=== PATIENT | female | born 1970 | race Caucasian/White ===

== ENCOUNTER 2017-01-12 09:41 | Emergency (ER) | payer OTHER ==
[2017-01-12 09:39] LABS: ASCORBIC ACID (UR NOT ORDER) NEG (NEG); BILIRUBIN, URINE NEGATIVE (NEG); ER URINALYSIS TAT 0 Hrs 08 Mins; KETONE, URINE NEGATIVE (NEG); LEUKOCYTE ESTERASE(NOT OR NEG (NEG); NITRITE (URINE) NEG (NEG); WBC (NOT ORDERED) (RFLEX) 1 (0-5)
[~2017-01-12 09:41] MED LIST: ADVAIR230P INH; ADVAIR250 INH; B121000P IM; BALZIVA PO; CIP5 PO; COSENTYX SC; FLORASTOR250 MG PO; FLUCON150 PO; FOLIC PO; HYALURONIDASE IV; IMMUNE GLOBULIN IV; IRON325 MG PO; LORT7 PO; MTX2.5 PO; NORCO1 TAB PO; OMNICEF300 PO; PLAQ200B PO; PRILOSEC40 MG PO; PROAIR HFA INH; PROVHFA INH; SINGULAIR1 PO; SULFAZINE500 MG PO; SYN1 PO; SYN88 PO; VFEND PO; VITAMIN D31000 UNIT PO; XYZAL5 MG PO; ZANAFLEX 4 MG TA4 MG PO; ZITH250 PO; [UNRECOGNIZED DRUG - CODE] OR
[2017-01-12 09:47] LABS: BASOPHILS 0.5 %; BASOPHILS ABSOLUTE 0.05 10/3/uL (0.0-0.16); EOSINOPHILS 0.5 %; EOSINOPHILS ABSOLUTE 0.05 10/3/uL (0.0-0.53); HEMATOCRIT 34.6 % (36.0-48.0); HEMOGLOBIN 11.8 g/dL (12.0-16.0); IMMATURE GRANULOCYTES 0.5 %; IMMATURE GRANULOCYTES ABSOLUTE 0.05 10/3/uL (0.0-0.11); LYMPHOCYTES 18.5 %; LYMPHOCYTES ABSOLUTE 1.83 10/3/uL (0.67-4.30); MANUAL DIFF NO %; MEAN CORPUS HGB CONC 34.1 g/dL (32.0-36.0); MEAN CORPUSCULAR HEMOGLOB 30.3 pg (26.0-34.0); MEAN CORPUSCULAR VOLUME 88.9 fL (80-100); MEAN PLATELET VOLUME 9.1 fL (9.2-13.0); MONOCYTES 9.9 %; MONOCYTES ABSOLUTE 0.98 10/3/uL (0.21-1.20); NEUTROPHILS 70.1 %; NEUTROPHILS ABSOLUTE 6.92 10/3/uL (2.02-8.40); PLATELET COUNT 281 10/3/uL (150-400); RBC DISTRIBUTION WIDTH 12.9 % (12.0-16.0); RED CELL COUNT 3.89 10/6/uL (4.0-5.6); WHITE BLOOD CELLS 9.9 10/3/uL (4.5-10.5)
[2017-01-12 09:56] LABS: INTERNATIONAL NORMAL RATI 1.1 UNITS (-); PARTIAL THROMBO TIME 40.5 SEC (22.5-37.2); PROTIME (NOT ORD) 13.7 SEC (12.0-14.5)
[2017-01-12 09:58] LABS: INFLUENZA A SCREEN NEGATIVE (NEGATIVE); INFLUENZA B SCREEN NEGATIVE (NEGATIVE)
[2017-01-12 10:03] LABS: BUN (BLOOD UREA NITROGEN) 5 MG/DL (6-23); CALCIUM, SERUM 8.8 MG/DL (8.5-10.4); CHEST PAIN PROFILE TAT 0 Hrs 20 Mins; CO2 (CARBON DIOXIDE) 25 MMOL/L (24-34); CREATININE 0.71 MG/DL (0.55-1.02); GFR AFRICAN AMERICAN 118 ML/MIN (>=60); GFR NON AFRICAN AMERICAN 101 ML/MIN (>=60); POTASSIUM, SERUM 3.8 MMOL/L (3.5-5.3); TROPONIN I <0.02 NG/ML (<0.05)
[2017-01-12 10:04] LABS: CHLORIDE, SERUM 93 MMOL/L (96-112); GLUCOSE, SERUM 65 MG/DL (60-99); SODIUM, SERUM 128 MMOL/L (135-148)
[2017-01-12 11:09] LABS: FREE T4 1.14 NG/DL (0.76-1.46)
== END 2017-01-12 11:50 | disposition home or self-care (01) ==
LOC: ER 09:41
PROVIDERS: Emergency Medicine
DX: R55 Syncope and collapse (principal); E87.1 Hypo-osmolality and hyponatremia; K21.9 Gastro-esophageal reflux disease without esophagitis; Z91.048 Other nonmedicinal substance allergy status; Z79.899 Other long term (current) drug therapy
CPT/HCPCS: 71010; 80048; 81001; 83735; 83930; 83935; 84439; 84443; 84484; 85025; 85610; 85730; 87070; 87077; 87186; 87205; 87804; 93005; 94640; 99285